=== PATIENT | male | born 1975 | race Caucasian/White ===

== ENCOUNTER 2019-07-30 18:36 | Inpatient (IN) ==
[2019-07-30] MEDS ORDERED: IOPAMIDOL 100 ML BOTTLE IV ONE (18:37)
[2019-07-30] MEDS ORDERED: HYDROmorphone 2 MG/ML VIAL IV ONE (19:14)
[2019-07-30] MEDS ORDERED: 0.9 % SODIUM CHLORIDE 1,000 ML IV ONE ×2 (19:14→22:46)
[2019-07-30] MEDS ORDERED: ONDANSETRON 4 MG/2 ML VIAL IV ONE (19:14)
--- NOTE | 2019-07-30 19:24 | Emergency Department Note ---
Skin/Abscess/FB HPI - General Chief complaint: Extremity Injury, Lower Stated complaint: Cellulitis L leg Time Seen by Provider: 07/30/19 18:43 Source: patient Mode of arrival: wheelchair Limitations: no limitations - History of Present Illness HPI Narrative: 43-year-old male comes back to the ER after being discharged from the hospital 3 days ago on 07/27/2019. He was initially seen by Dr. mccarthy and put on vancomycin for cellulitis of the left lower leg. He had modest improvement with that but not as much as expected. So, he was admitted to the hospital and placed on Zosyn and vancomycin with modest improvement again. He insisted on going home and so was discharged on the . Since then he has been on Rocephin and vancomycin as an outpatient. He continues to improve very slowly but says that his pain is poorly controlled and it hurts to walk. Additionally now his right forearm has redness and swelling around the areas where they had previous IVs. During his previous ER work-up he had an ultrasound of the left leg which was negative for DVT. He was supposed to get a CT scan but did not because he insisted on going home - Related Data Previous Rx's Medication Instructions Recorded Furosemide [Lasix] 20 mg PO DAILY #4 tab 07/27/19 HYDROcodone/APAP 5/325MG [[place] 1 tab PO Q4HP PRN #10 tab 07/27/19 5-325Mg] Vancomycin 1,500 mg IV Q12H #14 vial 07/27/19 cefTRIAXone NA/DEXTROSE,ISO 2 gm IV DAILY #7 ml 07/27/19 [Ceftriaxone 2 gm Piggyback] Allergies Allergy/AdvReac Type Severity Reaction Status Date / Time No Known Drug Allergies Allergy Verified 07/30/19 18:42 Review of Systems All systems ED: reviewed and negative except as stated. Past Medical History - Past Medical History Attestation: Yes: The following information was validated with the patient. Medical history: Reports: no medical history Surgical history ED: Reports: other (dental) - Social History smoking status: Current every day smoker Physical Exam Normocephalic atraumatic. Conjunctive are clear sclerae white nonicteric. No nasal discharge or congestion. Oropharynx pink and moist. Neck is supple without lymphadenopathy or thyromegaly. Heart is regular rate and rhythm no murmur appreciated. Lungs are clear to auscultation bilaterally without wheezes rales rhonchi or respiratory distress. Exam of the right forearm shows mild redness and swelling there this is diffuse without discrete borders but tender on the flexor surface. I do not feel cord or see ecchymoses or wound site. His antecubital fossa is slightly tender as well. At the left calf and muse area this area looks slightly better but there is some petechiae-the area of redness was marked with a purple surgical marker and it slightly less than that but is p erhaps only 5 to 10% improved despite the last 4 days of antibiotics. Skin is still tense, red and warm relative to the right side. He is able to move his foot normally as well as his knee Limitations: no limitations Course Vital Signs Temperature 97.3 F 07/30/19 18:37 Pulse Rate 125 H 07/30/19 18:37 Respiratory Rate 16 07/30/19 18:37 Blood Pressure 119/70 07/30/19 18:37 Pulse Oximetry (%) 98 07/30/19 18:37 Temperature 97.3 F 07/30/19 18:37 Pulse Rate 125 H 07/30/19 18:37 Respiratory Rate 16 07/30/19 18:37 Blood Pressure 119/70 07/30/19 18:37 Pulse Oximetry (%) 98 07/30/19 18:37 Skin/Abscess/Foreign Body - Lab Data Lab results reviewed: Yes I reviewed the patient's lab results. Result diagrams: 07/30/19 20:36 07/30/19 20:34 Lab Results 07/30/19 07/30/19 07/30/19 Range/Units 20:34 20:36 20:36 WBC 12.1 H (4.5-11.0) K/mcL RBC 4.34 L (4.50-5.90) M/mcL Hgb 12.7 L (13.5-16.5) g/dL Hct 37.3 L (41.0-55.0) % MCV 86.0 (80.0-100.0) fL MCH 29.3 (26.0-34.0) pg MCHC 34.0 (31.0-36.0) g/dL RDW 13.5 (11.5-14.5) % Plt Count 429 (140-440) K/mcL MPV 7.3 L (7.4-10.4) fL Gran % 75.9 (38.0-78.0) % Lymph % (Auto) 10.9 L (15.5-49.0) % [place] % (Auto) 7.2 (1.0-12.0) % Eos % (Auto) 5.2 (0.0-7.0) % Baso % (Auto) 0.8 (0.0-2.0) % Gran # 9.1 H (1.8-8.0) K/mcL Lymph # (Auto) 1.3 L (1.5-4.8) K/mcL [place] # (Auto) 0.9 (0.1-0.9) K/mcL Eos # (Auto) 0.6 (0.0-0.7) K/mcL Baso # (Auto) 0.1 (0.0-0.3) K/mcL ESR TNP VBG Lactic Acid 0.8 (0.5-2.0) mmol/L Sodium 137 (133-145) mmol/L Potassium 4.2 (3.3-5.1) mmol/L Chloride 100 (96-108) mmol/L Carbon Dioxide 21 L (22-30) mmol/L Anion Gap 16.0 (8-16) BUN 9 (6-20) mg/dl Creatinine 1.0 (0.7-1.2) mg/dl GFR Calculation 92 Glucose 97 (70-105) mg/dL Calcium 8.8 (8.6-10.4) mg/dl Total Bilirubin 0.4 (0.0-1.0) mg/dL AST 28 (0-37) U/l ALT 46 H (0-40) U/l Alkaline Phosphatase 224 H (39-117) U/L C-Reactive Protein 13.8 H (0.0-0.8) mg/dl Total Protein 6.9 (5.9-8.4) gm/dL Albumin 3.1 L (3.2-5.2) gm/dL Globulin 3.8 H (2.2-3.7) gm/dL Albumin/Globulin Ratio 0.8 L (1.0-2.3) Procalcitonin (<0.10) ng/mL 07/30/19 Range/Units 20:36 WBC (4.5-11.0) K/mcL RBC (4.50-5.90) M/mcL Hgb (13.5-16.5) g/dL Hct (41.0-55.0) % MCV (80.0-100.0) fL MCH (26.0-34.0) pg MCHC (31.0-36.0) g/dL RDW (11.5-14.5) % Plt Count (140-440) K/mcL MPV (7.4-10.4) fL Gran % (38.0-78.0) % Lymph % (Auto) (15.5-49.0) % [place] % (Auto) (1.0-12.0) % Eos % (Auto) (0.0-7.0) % Baso % (Auto) (0.0-2.0) % Gran # (1.8-8.0) K/mcL Lymph # (Auto) (1.5-4.8) K/mcL [place] # (Auto) (0.1-0.9) K/mcL Eos # (Auto) (0.0-0.7) K/mcL Baso # (Auto) (0.0-0.3) K/mcL ESR VBG Lactic Acid (0.5-2.0) mmol/L Sodium (133-145) mmol/L Potassium (3.3-5.1) mmol/L Chloride (96-108) mmol/L Carbon Dioxide (22-30) mmol/L Anion Gap (8-16) BUN (6-20) mg/dl Creatinine (0.7-1.2) mg/dl GFR Calculation Glucose (70-105) mg/dL Calcium (8.6-10.4) mg/dl Total Bilirubin (0.0-1.0) mg/dL AST (0-37) U/l ALT (0-40) U/l Alkaline Phosphatase (39-117) U/L C-Reactive Protein (0.0-0.8) mg/dl Total Protein (5.9-8.4) gm/dL Albumin (3.2-5.2) gm/dL Globulin (2.2-3.7) gm/dL Albumin/Globulin Ratio (1.0-2.3) Procalcitonin 0.14 (<0.10) ng/mL - Radiology Data Radiology results reviewed: Yes I reviewed the patient's radiology results. CT scan of the leg with contrast is ordered-shows soft tissue edema cellulitis versus lymphedema. No abscess or mass is seen Disposition Pt seen by STORE DIRECTOR/PA only: No Clinical Impression: Cellulitis of left lower extremity Summary: Cellulitis plus or minus vasculitis now to include right forearm. Only very mi ld improvement despite aggressive antibiotics-essentially failing outpatient therapy. Laboratory and CT scan. Start Dilaudid for pain and IV fluids. He is already received antibiotics this morning but he did not get this evenings vancomycin Laboratory shows increase in leukocytes. Other laboratories consistent with cellulitis. CT scan shows cellulitis versus lymphedema. Patient needs to be in the hospital for uncontrolled pain and cellulitis of the left lower leg that has failed outpatient therapy Discussed case with Dr. Trammell, hospitalist. He agreed to accept the patient for further care and evaluation in the hospital. PICC line is placed because of difficulty with his arm vasculature secondary to being on vancomycin Disposition: Xfer As Inpt ([facility]) Condition: Serious Referrals: No,PCP [Primary Care Provider] -
[2019-07-30 21:11] LABS: Basophils # (Auto) 0.1 K/mcL (0.0-0.3); Basophils % (Auto) 0.8 % (0.0-2.0); Eosinophils # (Auto) 0.6 K/mcL (0.0-0.7); Eosinophils % (Auto) 5.2 % (0.0-7.0); Granulocytes % (Auto) 75.9 % (38.0-78.0); Hematocrit 37.3 % (41.0-55.0); Hemoglobin 12.7 g/dL (13.5-16.5); Lymphocytes # (Auto) 1.3 K/mcL (1.5-4.8); Lymphocytes % (Auto) 10.9 % (15.5-49.0); Mean Platelet Volume 7.3 fL (7.4-10.4); Monocytes # (Auto) 0.9 K/mcL (0.1-0.9); Monocytes % (Auto) 7.2 % (1.0-12.0); Platelet Count 429 K/mcL (140-440); RBC 4.34 M/mcL (4.50-5.90); Red Cell Distribution Width 13.5 % (11.5-14.5); WBC 12.1 K/mcL (4.5-11.0)
[2019-07-30] MEDS ORDERED: HYDROmorphone 2 MG/ML VIAL IV PRN ×2 (21:43→22:46)
[2019-07-30 22:10] LABS: ALT/SGPT 46 U/l (0-40); AST/SGOT 28 U/l (0-37); Albumin 3.1 gm/dL (3.2-5.2); Albumin/Globulin Ratio 0.8 (1.0-2.3); Alkaline Phosphatase 224 U/L (39-117); Bilirubin,Total 0.4 mg/dL (0.0-1.0); Blood Urea Nitrogen 9 mg/dl (6-20); C-Reactive Protein 13.8 mg/dl (0.0-0.8); Calcium 8.8 mg/dl (8.6-10.4); Carbon Dioxide 21 mmol/L (22-30); Chloride 100 mmol/L (96-108); Globulin 3.8 gm/dL (2.2-3.7); Glomerular Filtration Rate 92; Glucose 97 mg/dL (70-105)
--- NOTE | 2019-07-30 22:32 | Internal Med History&Physical ---
Medical - H&P: HPI Patient information: Note initiated : 07/30/19 at 10:30 pm Service Date, if different from initiated Date: [] Patient: Edgar Dyer 43 y/o M admitted on for Cellulitis L leg. Chief Complaint: [] History of present illness: Mr. Dyer is a 43 year old M This is a 43-year-old gentleman was seen in the ER a week ago and was given vancomycin in the ER came back with worsening cellulitis and was admitted and was started on vancomycin and ceftriaxone. Patient was discharged in 24-hour with observation status. He was scheduled to have outpatient vancomycin and ceftriaxone which he was getting for the last 4 days without any significant improvement may be a 10% improvement. But now he was having worsening pain in his right cubital fossa are developed mild swelling at the IV site with firmness. He denied any fever chills no other constitutional symptoms other than headache. - Constitutional Constitutional: Present: fatigue, headache(s). Absent: chills - EENT Eyes: Absent: blind spots, blurry vision, change in vision Ears: Present: as per HPI. Absent: decreased hearing, ear discharge, ear pain Nose, mouth and throat: Absent: abnormal hearing, bleeding gums, change in voice - Cardiovascular Cardiovascular: Absent: chest pain, chest pain at rest, chest pain with activity, claudication, diaphoresis - Respiratory Respiratory: Absent: cough, dyspnea, hemoptysis - Gastrointestinal Gastrointestinal: Absent: coffee ground emesis, constipation, cramping - Genitourinary Genitourinary: Absent: difficulty with ejaculations, dysuria, erectile dysfunction - Integumentary Integumentary: Present: new lesions, non-healing lesions - Neurological Neurological: Absent: convulsions, disequilibrium, dizziness Medical - H&P: PMH Family history: reviewed and not pertinent Social history: Social History No Social History Section defined Medical - H&P: Meds Home Medications Medication Instructions Recorded Confirmed Type Furosemide [Lasix] 20 mg PO DAILY #4 tab 07/27/19 Rx HYDROcodone/APAP 5/325MG [[place] 1 tab PO Q4HP PRN #10 tab 07/27/19 Rx 5-325Mg] Vancomycin 1,500 mg IV Q12H #14 vial 07/27/19 Rx cefTRIAXone NA/DEXTROSE,ISO 2 gm IV DAILY #7 ml 07/27/19 Rx [Ceftriaxone 2 gm Piggyback] Allergies Allergy/AdvReac Type Severity Reaction Status Date / Time No Known Drug Allergies Allergy Verified 07/30/19 18:42 Medical - H&P: Exam - Constitutional Vitals: Temp Pulse Resp BP Pulse Ox 97.3 F 125 H 16 119/70 98 07/30/19 18:37 07/30/19 18:37 07/30/19 18:37 07/30/19 18:37 07/30/19 18:37 General appearance: average body habitus, cooperative, mild distress - Head Head exam: Present: atraumatic, normal inspection, normocephalic - Expanded Head Exam Head exam: Absent: Austin's sign, contusion, general tenderness - Eye Eye exam: Present: normal appearance. Absent: conjunctival injection Pupils: Present: PERRL - ENT ENT exam: Present: mucous membranes moist, normal exam, normal external ear exam - Expanded ENT Exam Ear exam: Absent: auricular hematoma, auricular trauma Nose & sinuses exam: Present: external nose, grossly normal, nasal mucusa, septum and turbinates normal Mouth exam: Absent: drooling, dry mucosa, laceration - Neck Neck exam: Present: full ROM, normal inspection. Absent: meningismus - Respiratory Respiratory exam: Present: normal respiratory exam. Absent: accessory muscle use, chest wall tenderness, rales, respiratory distress, rhonchi - Cardiovascular Cardiovascular exam: Present: normal rate and rhythm. Absent: bradycardia, systolic murmur, tachycardia - GI/Abdominal GI/Abdominal exam: Present: normal bowel sounds, distended - Extremities Exam Extremities exam: Present: normal capillary refill. Absent: calf tenderness (Redness and swelling of the left lower extremity extending up to below knee, marking showing a 10 to 15% improvement, still warm tender to touch. Mild forearm swelling right cubital fossa. No erythema) Medical - H&P: Reslt - Labs CBC & Chem 7: 07/30/19 20:36 07/30/19 20:34 Labs: Short CBC 07/30/19 Range/Units 20:36 WBC 12.1 H (4.5-11.0) K/mcL Hgb 12.7 L (13.5-16.5) g/dL Hct 37.3 L (41.0-55.0) % Plt Count 429 (140-440) K/mcL BMP 07/30/19 20:34 Sodium 137 Potassium 4.2 Chloride 100 Carbon Dioxide 21 L BUN 9 Creatinine 1.0 Glucose 97 Calcium 8.8 Liver Function 07/30/19 Range/Units 20:34 Total Bilirubin 0.4 (0.0-1.0) mg/dL AST 28 (0-37) U/l ALT 46 H (0-40) U/l Alkaline Phosphatase 224 H (39-117) U/L Albumin 3.1 L (3.2-5.2) gm/dL Medical - H&P: A/P - Narrative A/P Narrative: Cellulitis-not improving on broad-spectrum antibiotic Patient was recently admitted and discharged 3 days ago was getting outpatient vancomycin and ceftriaxone Cellulitis not significantly improving Continued having worsening pain and now developed mild swelling of the right cubital fossa Plan His examination looks typical for cellulitis Will start him on Zosyn No areas to culture No open wound Other possibility of vasculitis We will try to obtain a ID physician consult Ordered CK level and follow-up CRP and ESR We will obtain a CT scan of the lower extremity and ultrasound of the right cubital fossa as needed DVT prophylaxis-subcu Lovenox CODE STATUS-full code
[2019-07-30] MEDS ORDERED: ACETAMINOPHEN 325 MG TABLET PO PRN (22:46)
[2019-07-30] MEDS ORDERED: NICOTINE 14 MG PATCH ONE (23:05)
[2019-07-30] MEDS: PIPERACILLIN SODIUM/TAZOBACTAM 4.5 GM in DEXTROSE 5% IN WATER 50 ML IV SCH (23:30)
[2019-07-31] MEDS ORDERED: oxyCODONE HCL 5 MG TABLET PO ONE (00:28)
[2019-07-31] MEDS: NICOTINE 14 MG PATCH TOPICAL SCH ×2 (00:33→09:21)
[2019-07-31] MEDS ORDERED: HYDROmorphone 2 MG/ML VIAL ONE (00:41)
[2019-07-31] MEDS: PIPERACILLIN SODIUM/TAZOBACTAM 4.5 GM in DEXTROSE 5% IN WATER 50 ML IV SCH ×4 (04:37→23:50)
[2019-07-31] MEDS: 0.9 % SODIUM CHLORIDE 10 ML SYRINGE IV SCH ×3 (05:14→21:53)
[2019-07-31 06:24] LABS: Hematocrit 36.2 % (41.0-55.0); Hemoglobin 11.9 g/dL (13.5-16.5); Mean Platelet Volume 7.7 fL (7.4-10.4); Platelet Count 423 K/mcL (140-440); RBC 4.07 M/mcL (4.50-5.90); Red Cell Distribution Width 13.6 % (11.5-14.5); WBC 10.7 K/mcL (4.5-11.0)
[2019-07-31 06:29] LABS: ALT/SGPT 41 U/l (0-40); AST/SGOT 25 U/l (0-37); Albumin 2.9 gm/dL (3.2-5.2); Albumin/Globulin Ratio 0.9 (1.0-2.3); Alkaline Phosphatase 198 U/L (39-117); Bilirubin,Total 0.5 mg/dL (0.0-1.0); Blood Urea Nitrogen 9 mg/dl (6-20); Calcium 8.5 mg/dl (8.6-10.4); Carbon Dioxide 25 mmol/L (22-30); Chloride 100 mmol/L (96-108); Globulin 3.2 gm/dL (2.2-3.7); Glomerular Filtration Rate 82; Glucose 94 mg/dL (70-105)
--- NOTE | 2019-07-31 08:12 | Cat Scan Report ---
History: Swollen left leg with cellulitis or vasculitis TECHNIQUE: Following injection of intravenous nonionic contrast, the patient was imaged from the distal thigh through the foot. Sagittal and coronal reformats were created. Radiation exposure was limited using dose reduction technology. FINDINGS: The bones are normal. There is no fracture, dislocation, bone erosion or periosteal elevation. There is no significant arthritis in the knee or ankle. There is normal opacification of the popliteal artery and vein. There is also normal enhancement of the arteries and veins in the calf down to the foot. There is no apparent plaque formation within the arteries and no thrombosis is present. There is generalized swelling and infiltration of the subcutaneous fat surrounding the calf. This extends up to the lateral aspect of the distal thigh. No abscess is present. The muscles appear normal without evidence of inflammation mass or tear. Is 11 mm lymph node in the popliteal fossa. IMPRESSION: Edema/cellulitis throughout the calf extending to the lateral aspect of the distal thigh No evidence of osteomyelitis, myositis or abscess No evidence of vascular occlusion or stenosis Interpreted and Authenticated by: Abdullahi Jay 07/31/19
--- NOTE | 2019-07-31 08:16 | XRay Report ---
HISTORY: PICC line placement FINDINGS: A PICC line has been inserted through the left arm into the superior mediastinum. The end of the catheter is looped in the superior vena cava. The tip is pointing superiorly. There is no widening of the mediastinum. No pneumothorax or pleural effusion are present. Lung volumes are relatively small due to suboptimal inspiration. There is mild atelectasis in the basilar segments, right greater than left. The heart size is normal. IMPRESSION: PICC line looped in the superior vena cava Mild bibasilar atelectasis, right greater than left Interpreted and Authenticated by: Abdullahi Jay 07/31/19
[2019-07-31 08:32] LABS: Band Neutrophils % 1 % (0-10); Basophils % (Manual) 1 % (0-2); Eosinophils % (Manual) 5 % (0-7); Lymphocytes % 16 % (15-49); Monocytes % (Manual) 9 % (1-12); Myelocytes % 1 % (0-0); Plasmacytoid OCC (NONE SEEN); Platelet Estimate NORMAL (NORMAL); RBC Morphology NORMAL (NORMAL); Reactive Lymphocytes 4 % (0-2); Segmented Neutrophils % 63 % (38-78)
[2019-07-31] MEDS: HYDROmorphone 2 MG/ML VIAL IV PRN ×4 (09:06→21:44)
[2019-07-31] MEDS: ENOXAPARIN 40 MG/0.4 ML SYRINGE SQ SCH (09:08)
[2019-07-31] MEDS: oxyCODONE HCL 5 MG TABLET PO PRN ×3 (11:48→21:44)
--- NOTE | 2019-07-31 12:04 | Internal Med Progress Note ---
Medical - PN: Subj Patient information: Note initiated : 07/31/19 at 12:01 pm Service Date, if different from initiated Date: [] Patient: Edgra Dyre 43 y/o M admitted on 07/30/19 for Cellulitis L leg. Chief Complaint: [] Interval history: This is a 43-year-old apparently healthy gentleman was admitted with a cellulitis and discharged 3 days ago came back with a cellulitis not improving on vancomycin and ceftriaxone. He was admitted and started on Zosyn and he held the vancomycin as there was no improvement and no evidence of any pus drainage his MRSA screen was negative. We will try to obtain infectious disease consult Pertinent ROS: General appearance-healthy and well-built, not in any distress, alert oriented Respiratory-no shortness of breath no wheezing no rails CVS-no chest pain no palpitation no syncope Abdominal-no diarrhea no constipation no melena no hematochezia Urinary-no frequency no urine symptoms no discharge Skin-continued having redness and swelling improved compared to yesterday - Constitutional Vitals: Vital Signs Temp Pulse Resp BP Pulse Ox 97.4 F 84 18 119/65 94 07/31/19 11:59 07/31/19 11:59 07/31/19 11:59 07/31/19 11:59 07/31/19 11:59 Period Temp Pulse Resp BP Sys/[place] Pulse Ox Last 24 Hr 97.3 F-98.8 F 77-125 16-18 112-125/56-73 92-98 Intake and Output 07/30/19 07/31/19 07/31/19 21:59 05:59 13:59 Intake Total 1375 650 Output Total 1550 1700 Balance -175 -1050 Weight 235 lb 245 lb 11.2 oz Intake & Output: Intake & Output 07/30/19 07/31/19 07/31/19 21:59 05:59 13:59 Intake Total 1375 650 Output Total 1550 1700 Balance -175 -1050 Weight 235 lb 245 lb 11.2 oz Intake: IV 1100 Sodium Chloride 0.9% 1,000 ml @ 1000 Wide Open IV .Q0M ONE Rx#: [id number] Zosyn 4.5 gm In Dextrose 5% in 100 Water 50 ml @ 100 mls/hr IV Q6H [facility] Rx#:[id number] Oral 275 650 Output: Void Amount 1550 1700 Other: Meal snack Breakfast Percent of Meal Consumed 50% 100% Feeding Ability Independent Urine Appearance Clear Clear Urine Color Bright Yellow Straw Urine Odor Normal General appearance: cooperative, no acute distress - Head Head exam: Present: atraumatic, normal inspection, normocephalic - Eye Eye exam: Present: normal appearance. Absent: conjunctival injection Pupils: Present: PERRL - ENT ENT exam: Present: mucous membranes moist, normal exam, normal external ear exam - Neck Neck exam: Present: full ROM, normal inspection. Absent: meningismus, tenderness, thyromegaly - Respiratory Respiratory exam: Present: normal respiratory exam. Absent: accessory muscle use, rales, respiratory distress - Cardiovascular Cardiovascular exam: Present: normal rate and rhythm. Absent: bradycardia, diastolic murmur, systolic murmur, tachycardia - GI/Abdominal GI/Abdominal exam: Present: normal bowel sounds, soft, distended - Neurological Exam Neurological exam: Present: alert, oriented X3. Absent: motor sensory deficit - Skin Additional comments: His redness and erythema and warmth improved on left lower extremity receding the marked line significantly. Right forearm swelling and redness improved but still having some tenderness Medical - PN: Obj Da - Labs CBC & Chem 7: 07/31/19 04:25 07/31/19 04:25 Labs: Abnormal Lab Results 07/31/19 07/31/19 07/31/19 04:25 04:25 04:25 WBC RBC 4.07 L Hgb 11.9 L Hct 36.2 L MPV Lymph % (Auto) Gran # Lymph # (Auto) Myelocytes % 1 H WBC Morphology Abnorm A Hypersegmented Polys Occ A Plasmacytoid Lymphs Occ A Reactive Lymphocytes 4 H Carbon Dioxide Calcium 8.5 L ALT 41 H Alkaline Phosphatase 198 H Total Creatine Kinase 21 L C-Reactive Protein Albumin 2.9 L Globulin Albumin/Globulin Ratio 0.9 L 07/30/19 07/30/19 20:36 20:34 WBC 12.1 H RBC 4.34 L Hgb 12.7 L Hct 37.3 L MPV 7.3 L Lymph % (Auto) 10.9 L Gran # 9.1 H Lymph # (Auto) 1.3 L Myelocytes % WBC Morphology Hypersegmented Polys Plasmacytoid Lymphs Reactive Lymphocytes Carbon Dioxide 21 L Calcium ALT 46 H Alkaline Phosphatase 224 H Total Creatine Kinase C-Reactive Protein 13.8 H Albumin 3.1 L Globulin 3.8 H Albumin/Globulin Ratio 0.8 L Meds: Medications Acetaminophen (Tylenol) 650 mg PO Q4-6HP PRN; Protocol PRN Reason: PAIN/FEVER > 101 Enoxaparin Sodium (Lovenox) 40 mg SQ DAILY [facility] Last Admin: 07/31/19 09:08 Dose: 40 mg Documented by: Hydromorphone HCl (Dilaudid) 0.5 mg IV Q4HP PRN; Protocol PRN Reason: PAIN LEVEL > 6 Last Admin: 07/31/19 09:06 Dose: 0.5 mg Documented by: Piperacillin Sod/Tazobactam (Sod 4.5 gm/ Dextrose) 50 mls @ 100 mls/hr IV Q6H [facility]; Protocol Last Admin: 07/31/19 11:48 Dose: 100 mls/hr Documented by: Nicotine (Nicoderm) 14 mg TOPICAL DAILY@1000 [facility] Last Admin: 07/31/19 09:21 Dose: 14 mg Documented by: Oxycodone HCl (Roxicodone) 5 mg PO Q6HP PRN PRN Reason: PAIN LEVEL 3-6 Last Admin: 07/31/19 11:48 Dose: 5 mg Documented by: Sodium Chloride (Saline Flush) 10 ml IV Q8 [facility] Last Admin: 07/31/19 05:14 Dose: 10 ml Documented by: Medical - PN: A/P - Time Spent With Patient Total time spent is greater than 50% in coordination of care (as documented) at patient's floor/unit and/or counseling patient: - Narrative A/P Narrative: Unresolved cellulitis on broad-spectrum antibiotics Patient presented with worsening cellulitis and will received 6 days of vancomycin and ceftriaxone without any significant improvement He was admitted and started on Zosyn His cellulitis started improving around 20% improvement compared to yesterday We will continue Zosyn Ordered ultrasound to rule out any DVT We will try to obtain infectious disease consult before discharge Right cubital fossa and right forearm swelling Patient was having swelling and tenderness of the right arm where he had the IV access and receiving vancomycin Possibility of thrombophlebitis Continue Zosyn We will obtain ultrasound No other reported medical problems DVT prophylaxis-subcu Lovenox, SCDs CODE STATUS-full code Medical - PN: Qual - VTE Deep Vein Thrombosis/Pulmonary Embolism Present on Admission: No
--- NOTE | 2019-07-31 17:03 | Ultrasound Report ---
History: Thrombophlebitis in the right arm Findings: There is thrombosis of the cephalic vein beginning above the level of the elbow and extending to the distal forearm. There is also extension into the median antecubital vein, at the elbow. The radial and ulnar veins, basilic, brachial, axillary and subclavian veins are normal without evidence of thrombosis. IMPRESSION: Superficial thrombosis of the cephalic vein and median antecubital vein Interpreted and Authenticated by: Abdullahi Jay 07/31/19
--- NOTE | 2019-07-31 17:05 | Ultrasound Report ---
History: Left leg erythema and swelling, possible deep venous thrombosis FINDINGS: There is normal augmentation and compressibility of the deep veins and saphenous vein from the groin through the calf. Doppler shows normal waveform patterns. In the left groin there are a few reactive lymph nodes. The largest measures 1.6 x 2.7 x 3.3 cm and has a fatty central hilum. IMPRESSION: No evidence of deep venous thrombosis Interpreted and Authenticated by: Abdullahi Jay 07/31/19
[2019-08-01] MEDS: oxyCODONE HCL 5 MG TABLET PO PRN ×4 (04:05→23:43)
[2019-08-01] MEDS: PIPERACILLIN SODIUM/TAZOBACTAM 4.5 GM in DEXTROSE 5% IN WATER 50 ML IV SCH ×4 (06:16→23:43)
[2019-08-01 06:43] LABS: Hemoglobin 12.9 g/dL (13.5-16.5); Mean Cell Volume 88.3 fL (80.0-100.0); Mean Corpuscular HGB Conc 33.2 g/dL (31.0-36.0); Mean Platelet Volume 7.6 fL (7.4-10.4); Platelet Count 456 K/mcL (140-440); RBC 4.41 M/mcL (4.50-5.90); Red Cell Distribution Width 13.4 % (11.5-14.5)
[2019-08-01] MEDS: HYDROmorphone 2 MG/ML VIAL IV PRN ×4 (07:59→20:28)
[2019-08-01 08:01] LABS: Band Neutrophils % 1 % (0-10); Eosinophils % (Manual) 6 % (0-7); Lymphocytes % 21 % (15-49); Metamyelocytes % 1 % (0-0); Monocytes % (Manual) 6 % (1-12); Myelocytes % 3 % (0-0); Platelet Estimate INCREASED (NORMAL); RBC Morphology NORMAL (NORMAL); Segmented Neutrophils % 62 % (38-78)
[2019-08-01 08:12] LABS: ALT/SGPT 51 U/l (0-40); AST/SGOT 27 U/l (0-37); Albumin 3.2 gm/dL (3.2-5.2); Albumin/Globulin Ratio 0.9 (1.0-2.3); Alkaline Phosphatase 219 U/L (39-117); Bilirubin,Total 0.4 mg/dL (0.0-1.0); Blood Urea Nitrogen 10 mg/dl (6-20); Carbon Dioxide 27 mmol/L (22-30); Chloride 101 mmol/L (96-108); Globulin 3.6 gm/dL (2.2-3.7); Glomerular Filtration Rate 82; Glucose 84 mg/dL (70-105)
[2019-08-01] MEDS: 0.9 % SODIUM CHLORIDE 10 ML SYRINGE IV SCH ×2 (09:04→20:29)
[2019-08-01] MEDS: ENOXAPARIN 40 MG/0.4 ML SYRINGE SQ SCH (09:05)
--- NOTE | 2019-08-01 10:34 | Internal Med Progress Note ---
Medical - PN: Subj Patient information: Note initiated : 08/01/19 at 10:25 am Service Date, if different from initiated Date: [] Patient: Edgar Dyer 43 y/o M admitted on 07/30/19 for Cellulitis L leg. Chief Complaint: [] Interval history: This is a 43-year-old apparently healthy gentleman was admitted with a cellulitis and discharged 3 days ago came back with a cellulitis not improving on vancomycin and ceftriaxone. He was admitted and started on Zosyn and he held the vancomycin as there was no improvement and no evidence of any pus drainage his MRSA screen was negative. 07/31-his swelling started improving redness improved with the Zosyn so we continued Zosyn. Did not add any MRSA coverage as he is clinically improving. Ordered ultrasound of right upper extremity and left lower extremity 08/01 -ultrasound of the right upper extremity came back positive for superficial vein thrombosis of the cephalic vein and median antecubital vein. Discussed with the patient and he preferred to go with the Xarelto for 3 months of anticoagulation. No evidence of worsening swelling or evidence of venous obstruction. Pertinent ROS: General appearance-he feeling better alert oriented Respiratory-no shortness of breath no wheezing no hypoxia CVS-no chest pain no palpitations no dizziness Abdomen-nondistended nontender no diarrhea no constipation Lower extremity-swelling and erythema improving Right upper extremity still having pain but improved - Constitutional Vitals: Vital Signs Temp Pulse Resp BP Pulse Ox 97.3 F 92 H 16 106/58 94 08/01/19 06:57 08/01/19 06:57 08/01/19 06:57 08/01/19 06:57 08/01/19 06:57 Period Temp Pulse Resp BP Sys/Bedolla Pulse Ox Last 24 Hr 97.3 F-98.8 F 80-92 16-24 106-133/57-75 92-97 Intake and Output 07/31/19 08/01/19 08/01/19 21:59 05:59 13:59 Intake Total 1050 300 300 Output Total 3716 947 6764 Balance -275 -200 -1000 Weight 246 lb 3.2 oz Intake & Output: Intake & Output 07/31/19 08/01/19 08/01/19 21:59 05:59 13:59 Intake Total 1050 300 300 Output Total 7962 821 6843 Balance -275 -200 -1000 Weight 246 lb 3.2 oz Intake: IV 50 50 Zosyn 4.5 gm In Dextrose 5% in 50 50 Water 50 ml @ 100 mls/hr IV Q6H [facility] Rx#:[id number] Oral 1000 250 300 Output: Void Amount 3050 528 7576 Other: Meal Dinner Breakfast Percent of Meal Consumed 75% 75% Feeding Ability Independent Urine Appearance Clear Clear Urine Color Straw Pale Bright Yellow Urine Odor Normal Normal General appearance: cooperative, mild distress - Head Head exam: Present: atraumatic, normal inspection, normocephalic - Eye Eye exam: Absent: conjunctival injection - ENT ENT exam: Present: mucous membranes moist - Respiratory Respiratory exam: Present: normal respiratory exam. Absent: accessory muscle use, chest wall tenderness - Cardiovascular Cardiovascular exam: Present: normal rate and rhythm. Absent: diastolic murmur, systolic murmur - GI/Abdominal GI/Abdominal exam: Present: normal bowel sounds, soft. Absent: distended - Neurological Exam Neurological exam: Present: alert, oriented X3. Absent: motor sensory deficit, reflexes normal Medical - PN: Obj Da - Labs CBC & Chem 7: 08/01/19 05:00 08/01/19 05:00 Labs: Abnormal Lab Results 08/01/19 08/01/19 07/31/19 05:00 05:00 04:25 WBC RBC 4.41 L Hgb 12.9 L Hct 39.0 L Plt Count 456 H MPV Lymph % (Auto) Gran # Lymph # (Auto) Metamyelocytes % 1 H Myelocytes % 3 H WBC Morphology Hypersegmented Polys Plasmacytoid Lymphs Reactive Lymphocytes Platelet Estimate Increased A Carbon Dioxide Calcium 8.5 L ALT 51 H 41 H Alkaline Phosphatase 219 H 198 H Total Creatine Kinase C-Reactive Protein Albumin 2.9 L Globulin Albumin/Globulin Ratio 0.9 L 0.9 L 07/31/19 07/31/19 07/30/19 04:25 04:25 20:36 WBC 12.1 H RBC 4.07 L 4.34 L Hgb 11.9 L 12.7 L Hct 36.2 L 37.3 L Plt Count MPV 7.3 L Lymph % (Auto) 10.9 L Gran # 9.1 H Lymph # (Auto) 1.3 L Metamyelocytes % Myelocytes % 1 H WBC Morphology Abnorm A Hypersegmented Polys Occ A Plasmacytoid Lymphs Occ A Reactive Lymphocytes 4 H Platelet Estimate Carbon Dioxide Calcium ALT Alkaline Phosphatase Total Creatine Kinase 21 L C-Reactive Protein Albumin Globulin Albumin/Globulin Ratio 07/30/19 20:34 WBC RBC Hgb Hct Plt Count MPV Lymph % (Auto) Gran # Lymph # (Auto) Metamyelocytes % Myelocytes % WBC Morphology Hypersegmented Polys Plasmacytoid Lymphs Reactive Lymphocytes Platelet Estimate Carbon Dioxide 21 L Calcium ALT 46 H Alkaline Phosphatase 224 H Total Creatine Kinase C-Reactive Protein 13.8 H Albumin 3.1 L Globulin 3.8 H Albumin/Globulin Ratio 0.8 L Meds: Medications Acetaminophen (Tylenol) 650 mg PO Q4-6HP PRN; Protocol PRN Reason: PAIN/FEVER > 101 Heparin Sodium (Porcine) (Heparin Flush) 2 ml IV Q12 [facility] Last Admin: 08/01/19 09:04 Dose: 2 ml Documented by: Hydromorphone HCl (Dilaudid) 0.5 mg IV Q4HP PRN; Protocol PRN Reason: PAIN LEVEL > 6 Last Admin: 08/01/19 07:59 Dose: 0.5 mg Documented by: Piperacillin Sod/Tazobactam (Sod 4.5 gm/ Dextrose) 50 mls @ 100 mls/hr IV Q6H [facility]; Protocol Last Admin: 08/01/19 06:16 Dose: 100 mls/hr Documented by: Nicotine (Nicoderm) 14 mg TOPICAL DAILY@1000 [facility] Last Admin: 07/31/19 09:21 Dose: 14 mg Documented by: Oxycodone HCl (Roxicodone) 5 mg PO Q6HP PRN PRN Reason: PAIN LEVEL 3-6 Last Admin: 08/01/19 04:05 Dose: 5 mg Documented by: Rivaroxaban (Xarelto) 15 mg PO BIDCC [facility] Sodium Chloride (Saline Flush) 10 ml IV Q12 [facility] Last Admin: 08/01/19 09:04 Dose: 10 ml Documented by: Medical - PN: A/P - Time Spent With Patient Total time spent is greater than 50% in coordination of care (as documented) at patient's floor/unit and/or counseling patient: - Narrative A/P Narrative: Unresolved cellulitis even on broad-spectrum antibiotics Patient presented with worsening cellulitis and will received 6 days of vancomycin and ceftriaxone without any significant improvement He was admitted and started on Zosyn His cellulitis significantly improved since admission Continued Zosyn Did not add MRSA coverage as he is clinically improving Repeated lower extremity ultrasound no evidence of DVT Discussed with infectious disease specialist and advised to continue broad- spectrum antibiotic. He mentions sometimes it can take longer for cellulitis to improve Right arm superficial vein thrombosis Patient was having swelling and tenderness of the right arm where he had the IV access and receiving vancomycin Ultrasound showing evidence of cephalic vein and antecubital vein thrombosis Discussed with the patient and he prefer Xarelto overr Coumadin or IV anti- coagulation continue Zosyn This needs to be followed up outpatient Clinically no evidence of venous obstruction or respiratory compromise No other reported medical problems DVT prophylaxis-started him on Xarelto, SCDs CODE STATUS-full code Medical - PN: Qual - VTE Deep Vein Thrombosis/Pulmonary Embolism Present on Admission: No
[2019-08-01] MEDS: NICOTINE 14 MG PATCH TOPICAL SCH (10:47)
[2019-08-01] MEDS: RIVAROXABAN 15 MG TABLET PO SCH (17:36)
[2019-08-02 05:58] LABS: Hematocrit 39.9 % (41.0-55.0); Hemoglobin 13.2 g/dL (13.5-16.5); Mean Cell Volume 87.8 fL (80.0-100.0); Mean Corpuscular HGB Conc 33.2 g/dL (31.0-36.0); Mean Platelet Volume 7.4 fL (7.4-10.4); Platelet Count 509 K/mcL (140-440); RBC 4.54 M/mcL (4.50-5.90); Red Cell Distribution Width 12.9 % (11.5-14.5); WBC 9.9 K/mcL (4.5-11.0)
[2019-08-02] MEDS: PIPERACILLIN SODIUM/TAZOBACTAM 4.5 GM in DEXTROSE 5% IN WATER 50 ML IV SCH ×2 (06:01→11:58)
[2019-08-02 06:11] LABS: ALT/SGPT 52 U/l (0-40); AST/SGOT 25 U/l (0-37); Albumin 3.3 gm/dL (3.2-5.2); Albumin/Globulin Ratio 0.9 (1.0-2.3); Alkaline Phosphatase 215 U/L (39-117); Bilirubin,Total 0.3 mg/dL (0.0-1.0); Blood Urea Nitrogen 11 mg/dl (6-20); Calcium 9.1 mg/dl (8.6-10.4); Carbon Dioxide 25 mmol/L (22-30); Chloride 105 mmol/L (96-108); Globulin 3.6 gm/dL (2.2-3.7); Glomerular Filtration Rate 92; Glucose 89 mg/dL (70-105)
[2019-08-02] MEDS: RIVAROXABAN 15 MG TABLET PO SCH (07:40)
[2019-08-02] MEDS: oxyCODONE HCL 5 MG TABLET PO PRN (07:40)
[2019-08-02 08:35] LABS: Eosinophils % (Manual) 5 % (0-7); Lymphocytes % 15 % (15-49); Monocytes % (Manual) 9 % (1-12); Myelocytes % 2 % (0-0); Platelet Estimate INCREASED (NORMAL); RBC Morphology NORMAL (NORMAL); Segmented Neutrophils % 69 % (38-78)
[2019-08-02] MEDS: 0.9 % SODIUM CHLORIDE 10 ML SYRINGE IV SCH (09:06)
[2019-08-02] MEDS: NICOTINE 14 MG PATCH TOPICAL SCH (11:21)
--- NOTE | 2019-08-02 11:53 | Discharge Summary ---
Medical - DS: Prov Patient information: Note initiated : 08/02/19 at 11:50 am Service Date, if different from initiated Date: [] Patient: Edgar Dyer 43 y/o M admitted on 07/30/19 for Cellulitis L leg. Chief Complaint: [] Date of admission: 07/30/19 22:42 Discharge date: 08/02/19 Primary care physician: PCP No Consults: 07/30/19 Consult to Physician [CONS] Stat Comment: Consulting Provider: Mary Trammell Reason For Exam: Physician to Consult 07/30/19 22:46 Consult to Physician [CONS] Routine Comment: ?cellulitis not improving on broad spectrum ab Consulting Provider: Jung Rea Reason For Exam: Physician to Consult Medical - DS: Meds - Discharge Medications Prescriptions: oxyCODONE HCL [Roxicodone] 5 mg PO Q6HP PRN #20 tab PRN Reason: Pain Level 3-6 Prescription Printed Rivaroxaban [Xarelto] 15 mg PO BIDCC 20 Days tab Prescription Printed Rivaroxaban [Xarelto] 20 mg PO QPM 70 Days #70 tab Prescription Printed Piperacillin Sodium/Tazobactam [Zosyn] 4.5 gm IV Q6H 7 Days pump Prescription Printed Active and Home Medications: Home Medications Piperacillin Sodium/Tazobactam [Zosyn] 4.5 gm IV Q6H 7 Days pump 08/02/19 [Rx Last Taken Unknown] Rivaroxaban [Xarelto] 15 mg PO BIDCC 20 Days tab 08/02/19 [Rx Last Taken Unknown] Rivaroxaban [Xarelto] 20 mg PO QPM 70 Days #70 tab 08/02/19 [Rx Last Taken Unknown] oxyCODONE HCL [Roxicodone] 5 mg PO Q6HP PRN #20 tab 08/02/19 [Rx Last Taken Unknown] Medical - DS: Hosp Hospital Course: This is a 43-year-old apparently healthy gentleman was admitted with a cellulitis and discharged 3 days ago came back with a cellulitis not improving on vancomycin and ceftriaxone. He was admitted and started on Zosyn and he held the vancomycin as there was no improvement and no evidence of any pus drainage his MRSA screen was negative. 07/31-his swelling started improving redness improved with the Zosyn so we cont inued Zosyn. Did not add any MRSA coverage as he is clinically improving. Ordered ultrasound of right upper extremity and left lower extremity 08/01 -ultrasound of the right upper extremity came back positive for superficial vein thrombosis of the cephalic vein and median antecubital vein. Discussed with the patient and he preferred to go with the Xarelto for 3 months of anticoagulation. No evidence of worsening swelling or evidence of venous obstruction. 08/02-his cellulitis significantly improved redness almost gone tenderness significantly improved. Discussed with the patient and he would like to be discharged. Discussed with the family and the patient and decided to discharge him on 7 days of Zosyn every 6 hourly. Discussed with the pharmacy and will arrange outpatient CADD pump Persistent cellulitis even on broad-spectrum antibiotics Patient presented with worsening cellulitis and will received 6 days of vancomycin and ceftriaxone without any significant improvement He was admitted and started on Zosyn His cellulitis significantly improved since admission Continued Zosyn 4.25 every 6 hourly Did not add MRSA coverage as he is clinically improving Repeated lower extremity ultrasound no evidence of DVT Discussed with infectious disease specialist and advised to continue broad- spectrum antibiotic. He mentions sometimes it can take longer for cellulitis to improve Discussed with the patient and pharmacy and will be discharged on outpatient Zosyn infusion for next 7 days He then needs to be followed up with the primary care provider Right arm superficial vein thrombosis Patient was having swelling and tenderness of the right arm where he had the IV access and receiving vancomycin Ultrasound showing evidence of cephalic vein and antecubital vein thrombosis Discussed with the patient and he prefer Xarelto over Coumadin or IV anti- coagulation continue Zosyn through a PICC line This needs to be followed up outpatient Clinically no evidence of venous obstruction or respiratory compromise Swelling and redness improved Strongly recommend him follow-up with the primary care provider or hospital follow-up in a week Discharge diagnosis: Persistent cellulitis Secondary discharge diagnosis: Right upper extremity superficial vein thrombosis-induced - Time Spent with Patient Total time spent providing and/or coordinating discharge services: Greater than 30 minutes Medical - DS: Exam - Constitutional Vitals: Vital Signs Temp Pulse Resp BP BP Pulse Ox 08/02/19 11:42 97.4 F 20 98/66 98 08/02/19 08:00 16 98 08/02/19 06:41 97.9 F 16 98 08/02/19 03:55 98.2 F 74 16 100/64 96 08/02/19 00:00 98.4 F 71 16 105/67 95 08/01/19 16:24 98.9 F 79 16 124/68 96 08/01/19 11:58 96.5 F L 89 18 138/86 96 Intake and Output 08/01/19 08/02/19 08/02/19 21:59 05:59 13:59 Intake Total 880 750 50 Output Total 525 550 475 Balance 355 200 -425 Intake: IV 50 50 50 Zosyn 4.5 gm In Dextrose 5% in 50 50 50 Water 50 ml @ 100 mls/hr IV Q6H [facility] Rx#:[id number] Oral 830 700 Output: Void Amount 525 550 475 Other: Meal Lunch Percent of Meal Consumed 10 Feeding Ability Independent Urine Appearance Clear Urine Color Pale Bright Yellow Urine Odor Normal Weight 246 lb General appearance: cooperative, no acute distress - Head Head exam: Present: atraumatic, normal inspection, normocephalic - Eye Eye exam: Present: normal appearance. Absent: conjunctival injection, periorbital swelling - ENT ENT exam: Present: mucous membranes moist, normal exam - Neck Neck exam: Present: full ROM, normal inspection. Absent: lymphadenopathy - Respiratory Respiratory exam: Present: normal respiratory exam. Absent: accessory muscle use, chest wall tenderness, rhonchi, wheezes - Cardiovascular Cardiovascular exam: Present: normal rate and rhythm. Absent: bradycardia, diastolic murmur, systolic murmur - GI/Abdominal GI/Abdominal exam: Present: normal bowel sounds, soft. Absent: diminished bowel sounds, distended - Neurological Exam Neurological exam: Present: alert, oriented X3, reflexes normal. Absent: motor sensory deficit - Skin Skin exam: Present: erythema (Right forearm swelling and erythema improved but still having some mild erythema and no significant tenderness. Left lower extremity swelling and erythema almost gone significantly improved compared to admission) Medical - DS: Data Labs on day of discharge: Labs from last 24 hours 08/02/19 08/02/19 04:50 04:50 WBC 9.9 RBC 4.54 Hgb 13.2 L Hct 39.9 L MCV 87.8 MCH 29.1 MCHC 33.2 RDW 12.9 Plt Count 509 H MPV 7.4 Total Counted 100 Seg Neutrophils % 69 Band Neutrophils % Not Reportable Lymphocytes % 15 Monocytes % (Manual) 9 Eosinophils % (Manual) 5 Myelocytes % 2 H Platelet Estimate Increased A RBC Morphology Normal Sodium 141 Potassium 4.1 Chloride 105 Carbon Dioxide 25 Anion Gap 11.0 BUN 11 Creatinine 1.0 GFR Calculation 92 Glucose 89 Calcium 9.1 Magnesium 2.4 Total Bilirubin 0.3 AST 25 ALT 52 H Alkaline Phosphatase 215 H Total Protein 6.9 Albumin 3.3 Globulin 3.6 Albumin/Globulin Ratio 0.9 L Preliminary micro results at discharge 07/30/19 20:33 Blood Culture - Preliminary Blood 07/30/19 21:03 Blood Culture - Preliminary Blood Medical - DS: A/P - Patient/Caregiver Discharge Instructions Activity: increase activity as tolerated Diet: Regular Diet Additional Instructions: Avoid any strenuous activities for the next 3 months while you are on the blood thinner. Watch for any signs of bleeding. You might develop diarrhea with antibiotics; if it is severe come back to the ER or follow-up with the primary care provider. You are scheduled to come in daily at 10:30 am for a change of bag on the CADD pump. During the weekend you will come to the Med/Surg nurse's station for this appointment, your first appointment is Sat. Aug.03. During the week you will go to the Day Surgery area (Same Stay Specialties Unit). Prescriptions: oxyCODONE HCL [Roxicodone] 5 mg PO Q6HP PRN #20 tab PRN Reason: Pain Level 3-6 Prescription Printed Rivaroxaban [Xarelto] 15 mg PO BIDCC 20 Days tab Prescription Printed Rivaroxaban [Xarelto] 20 mg PO QPM 70 Days #70 tab Prescription Printed Piperacillin Sodium/Tazobactam [Zosyn] 4.5 gm IV Q6H 7 Days pump Prescription Printed - Follow up Plan Follow up with: No,PCP [Primary Care Provider] - (Established with a primary care and needed outpatient follow-up in 7 days) Disposition: Home, Self-Care Care Plan Goals: This discharge packet is provided to you to help keep you informed about your care. We want to ensure you get everything you need when you go home. You will also be receiving a call from us in a few days to follow up with you and see how you are doing since your discharge. This gives us a chance to listen to any concerns you maybe experiencing since you were discharged or any additional needs you may have, as well as providing us feedback on your care experience. We strive to always provide excellent care and thank you for your feedback and for choosing [facility]. Prognosis: Good Rehab Potential: Fair I certify that the patient requires SNF services: No Overall status at discharge: patient is progressing back to baseline Medical - DS: Qual - VTE Deep Vein Thrombosis/Pulmonary Embolism Present on Admission: No
[2019-08-02] MEDS ORDERED: TAZOBACTAM IV ONE (13:00)
[2019-08-02] MEDS ORDERED: PIPERACILLIN SODIUM IV ONE (13:00)
[2019-08-02] MEDS ORDERED: DEXTROSE 5% IV ONE (13:00)
[2019-08-02] MEDS ORDERED: WATER IV ONE (13:00)
--- NOTE | 2019-08-02 16:03 | Internal Med Progress Note ---
Medical - Auxillary Note - Subjective Patient Information: Note initiated : 08/02/19 at 4:02 pm Service Date, if different from initiated Date: [] Patient: Edgar Dyer 43 y/o M admitted on 07/30/19 for Cellulitis L leg. Chief Complaint: [] Vital Signs Temp Pulse Resp BP Pulse Ox 97.4 F 74 20 115/72 98 08/02/19 13:54 08/02/19 03:55 08/02/19 13:54 08/02/19 13:54 08/02/19 13:54 Period Temp Pulse Resp BP Sys/Bedolla Pulse Ox Last 24 Hr 97.4 F-98.9 F 71-79 16-20 98-124/64-72 95-98 Intake and Output 08/02/19 08/02/19 08/02/19 05:59 13:59 21:59 Intake Total 750 50 Output Total 550 475 Balance 200 -425 Result [place] 08/02/19 04:50 08/02/19 04:50 Abnormal Labs 08/02/19 08/02/19 08/01/19 04:50 04:50 05:00 WBC RBC Hgb 13.2 L Hct 39.9 L Plt Count 509 H MPV Lymph % (Auto) Gran # Lymph # (Auto) Metamyelocytes % Myelocytes % 2 H WBC Morphology Hypersegmented Polys Plasmacytoid Lymphs Reactive Lymphocytes Platelet Estimate Increased A Carbon Dioxide Calcium ALT 52 H 51 H Alkaline Phosphatase 215 H 219 H Total Creatine Kinase C-Reactive Protein Albumin Globulin Albumin/Globulin Ratio 0.9 L 0.9 L 08/01/19 07/31/19 07/31/19 05:00 04:25 04:25 WBC RBC 4.41 L Hgb 12.9 L Hct 39.0 L Plt Count 456 H MPV Lymph % (Auto) Gran # Lymph # (Auto) Metamyelocytes % 1 H Myelocytes % 3 H WBC Morphology Hypersegmented Polys Plasmacytoid Lymphs Reactive Lymphocytes Platelet Estimate Increased A Carbon Dioxide Calcium 8.5 L ALT 41 H Alkaline Phosphatase 198 H Total Creatine Kinase 21 L C-Reactive Protein Albumin 2.9 L Globulin Albumin/Globulin Ratio 0.9 L 07/31/19 07/30/19 07/30/19 04:25 20:36 20:34 WBC 12.1 H RBC 4.07 L 4.34 L Hgb 11.9 L 12.7 L Hct 36.2 L 37.3 L Plt Count MPV 7.3 L Lymph % (Auto) 10.9 L Gran # 9.1 H Lymph # (Auto) 1.3 L Metamyelocytes % Myelocytes % 1 H WBC Morphology Abnorm A Hypersegmented Polys Occ A Plasmacytoid Lymphs Occ A Reactive Lymphocytes 4 H Platelet Estimate Carbon Dioxide 21 L Calcium ALT 46 H Alkaline Phosphatase 224 H Total Creatine Kinase C-Reactive Protein 13.8 H Albumin 3.1 L Globulin 3.8 H Albumin/Globulin Ratio 0.8 L Patient was discharged with the Xarelto for next 3 months. Patient call back after going home as he could not afford the Xarelto. Discussed with the patient and prescribed Coumadin 5 mg daily and he needs to follow-up outpatient in a week to follow-up on his inr.
== END 2019-08-02 13:35 | disposition home or self-care (01) | DRG 603 ==
LOC: ED 18:36 → MEDSUR 22:42
PROVIDERS: ADMIT Internal Medicine; ATTEND Internal Medicine